=== PATIENT | male | born 1965 | race Caucasian/White ===

== ENCOUNTER 2017-02-16 12:01 | Observation (INO) ==
[2017-02-16] MEDS ORDERED: Aminoglycoside Consult 1 EACH MC ONE (12:17)
--- NOTE | 2017-02-16 12:17 | Emergency Department Note ---
Disposition Clinical Impression: Cellulitis Disposition: Admitted As Inpatient Condition: Fair Time of Disposition: 13:20 Skin/Abscess/FB HPI Chief complaint: ED General Medical Stated complaint: cellulitis to feet Time Seen by Provider: 02/16/17 12:08 Source: patient Mode of arrival: ambulatory Limitations: no limitations Nursing Notes Reviewed: Yes Vital Signs Reviewed: Yes HPI Narrative: Patient sent to the ER at the recommendation of the [facility] due to lower extremity swelling, erythema. Concern for cellulitis and possible fungal infection. Patient currently taking cephalexin as well as topical antifungals. He denies objective fevers. States his legs have been swollen over the past several months. Pt Subjective Complaint: rash Onset (ago): month(s) Location: LLE, RLE Severity: mild Quality: aching Consistency: constant Improves with: none Worsens with: none Treatments prior to arrival: antibiotic, other Home Medications Medication Instructions Recorded Confirmed Atorvastatin Calcium [Lipitor] 20 mg PO HS 06/15/16 02/16/17 Metformin HCl [Glucophage] 1,000 mg PO BID 06/15/16 02/16/17 Metoprolol XL (24 HR) Succ [Toprol 25 mg PO HS 06/15/16 02/16/17 XL] Omeprazole [PriLOSEC] 40 mg PO DAILY 06/15/16 02/16/17 Ranitidine HCl [Zantac] 300 mg PO HS PRN 06/15/16 02/16/17 Sitagliptin Phosphate [Januvia] 100 mg PO DAILY 06/15/16 02/16/17 hydroCHLOROthiazide 25 mg PO DAILY 06/15/16 02/16/17 [Hydrochlorothiazide] Clotrimazole 1% CRM [Lotrimin 1%] 1 appl TP BID 02/16/17 02/16/17 Furosemide [Lasix] 20 mg PO DAILY PRN 02/16/17 02/16/17 Levothyroxine [Synthroid] 125 mcg PO DAILY 02/16/17 02/16/17 Potassium Chloride [Klor-Con 10] 10 meq PO DAILY 02/16/17 02/16/17 levoFLOXacin [Levaquin] 500 mg PO DAILY 02/16/17 02/16/17 Allergies Allergy/AdvReac Type Severity Reaction Status Date / Time No Known Allergies Allergy Verified 06/15/16 08:04 All systems ED: reviewed and negative except as stated. Constitutional: Reports: as per HPI Eyes: Reports: as per HPI ENT ED: Reports: as per HPI Cardiovascular: Reports: as per HPI Respiratory: Reports: as per HPI Gastrointestinal: Reports: as per HPI Genitourinary: Reports: as per HPI Musculoskeletal: Reports: other (Lower extremity swelling) Integumentary: Reports: rash Psychiatric: Reports: as per HPI Endocrine: Reports: as per HPI Hematological/Lymphatic: Reports: as per HPI Allergic/Immunologic: Reports: as per HPI Past Medical History - Past Medical History Source: patient Medical history: Reports: diabetes, hyperlipidemia, hypertension Surgical history: Reports: no surgical history Psychiatric history: Reports: no psych history - Social History Smoking Status: Never smoker Smokeless Tobacco Status: No Alcohol use: Reports: rarely Drug use: Reports: none Physical Exam - General Limitations: no limitations General appearance: alert, in no apparent distress - Head Head exam: atraumatic - Eye Eye exam: Present: normal appearance - ENT ENT exam: normal exam - Neck Neck exam: Present: normal inspection - Chest Chest inspection: Present: normal inspection, symmetric chest wall rise - Respiratory Respiratory exam: Present: normal lung sounds bilaterally - Cardiovascular Cardiovascular exam: Present: regular rate, normal rhythm, normal heart sounds - Rectal Exam Rectal exam: Present: deferred - Extremities Exam Extremities exam: Present: pedal edema, other (Bilateral lower extremity swelling, left greater than right.) - Neurological Exam Neurological exam: Present: alert, oriented X3, CN II-XII intact - Psychiatric Psychiatric exam: Present: normal affect, normal mood - Skin Skin exam: Present: warm, dry, rash, other (Increased erythema to his distal bilateral lower extremities, left greater than right. Clear fluid filled bullae present. Skin tense without crepitus) Course Course Narrative: Patient presents with lower extremity swelling and erythema. Concern for cellulitis versus skin reaction due to edema. I will evaluate the patient for a left lower extremity DVT. Labs to be checked. Analgesics offered but declined - Reevaluation(s) Reevaluation #1: Test results discussed with patient. Doppler ultrasound negative for DVT. We will request admission Vital Signs Temperature 98.1 F 02/16/17 12:04 Pulse Rate 94 02/16/17 12:04 Respiratory Rate 18 02/16/17 12:04 Blood Pressure 152/103 02/16/17 12:04 O2 Sat by Pulse Oximetry 96 02/16/17 12:04 Temperature 98.4 F 02/16/17 15:14 Pulse Rate 85 02/16/17 15:14 Respiratory Rate 12 02/16/17 15:14 Blood Pressure 140/107 02/16/17 15:14 O2 Sat by Pulse Oximetry 98 02/16/17 15:32 Oxygen Delivery Oxygen Delivery Room Air Skin/Abscess/Foreign Body - Lab Data Lab results reviewed: Yes I reviewed the patient's lab results. Result diagrams: 02/16/17 12:25 02/16/17 12:25 Lab Results 02/16/17 02/16/17 02/16/17 Range/Units 12:25 12:25 12:25 WBC 9.8 (4.3-11.1) K/mcL RBC 5.63 H (4.19-5.50) M/mcL Hgb 14.8 (12.9-16.9) g/dL Hct 46.2 (37.5-50.1) % MCV 82.1 L (83.0-100.0) fL MCH 26.3 L (28.0-33.3) pg MCHC 32.0 (31.6-35.5) g/dL RDW 13.9 (11.5-14.5) % Plt Count 295 (140-400) K/mcL MPV 9.4 (9.4-12.4) fL Immature Gran % 0.4 (0-4) % Seg Neutrophils % 59.8 % Lymphocytes % 20.0 % Monocytes % 9.3 % Eosinophils % 10.0 % Basophils % 0.5 % Neutrophils # 5.8 (1.6-8.9) K/mcL Lymphocytes # 2.0 (0.6-4.6) K/mcL Monocytes # 0.9 (0.0-1.3) K/mcL Eosinophils # 1.0 H (0.0-0.6) K/mcL Basophils # 0.1 (0.0-0.2) K/mcL ESR 94 H (0-10) mm/hr Sodium 137 (136-145) mEq/L Potassium 3.8 (3.5-4.5) mEq/L Chloride 104 (98-109) mEq/L Carbon Dioxide 25 (19-29) mEq/L BUN 17 (8-26) mg/dL Creatinine 0.93 (0.72-1.25) mg/dL Est GFR ( Amer) > 60 (> 60) Est GFR (Non-Af Amer) > 60 (> 60) BUN/Creatinine Ratio 18 (6-26) Glucose 136 H (70-99) mg/dL Est Mean Plasma Glucose mg/dl Hemoglobin A1c ( - 5.6) % Calculated Osmolality 288 (280-300) Calcium 9.8 (8.6-10.8) mg/dL Total Bilirubin 0.7 (0.2-1.2) mg/dL AST 49 H (5-34) Units/L ALT 74 H (0-55) Units/L Alkaline Phosphatase 99 (38-126) Units/L C-Reactive Protein 24 H (Less than 5) mg/L Serum Total Protein 6.8 (6.0-8.3) g/dL Albumin 3.0 L (3.5-5.0) g/dL Globulin 3.8 H (2.4-3.5) g/dL Albumin/Globulin Ratio 0.8 L (1.1-2.2) 02/16/ Range/Units 12:25 WBC (4.3-11.1) K/mcL RBC (4.19-5.50) M/mcL Hgb (12.9-16.9) g/dL Hct (37.5-50.1) % MCV (83.0-100.0) fL MCH (28.0-33.3) pg MCHC (31.6-35.5) g/dL RDW (11.5-14.5) % Plt Count (140-400) K/mcL MPV (9.4-12.4) fL Immature Gran % (0-4) % Seg Neutrophils % % Lymphocytes % % Monocytes % % Eosinophils % % Basophils % % Neutrophils # (1.6-8.9) K/mcL Lymphocytes # (0.6-4.6) K/mcL Monocytes # (0.0-1.3) K/mcL Eosinophils # (0.0-0.6) K/mcL Basophils # (0.0-0.2) K/mcL ESR (0-10) mm/hr Sodium (136-145) mEq/L Potassium (3.5-4.5) mEq/L Chloride (98-109) mEq/L Carbon Dioxide (19-29) mEq/L BUN (8-26) mg/dL Creatinine (0.72-1.25) mg/dL Est GFR ( Amer) (> 60) Est GFR (Non-Af Amer) (> 60) BUN/Creatinine Ratio (6-26) Glucose (70-99) mg/dL Est Mean Plasma Glucose 174 mg/dl Hemoglobin A1c 7.7 H ( - 5.6) % Calculated Osmolality (280-300) Calcium (8.6-10.8) mg/dL Total Bilirubin (0.2-1.2) mg/dL AST (5-34) Units/L ALT (0-55) Units/L Alkaline Phosphatase (38-126) Units/L C-Reactive Protein (Less than 5) mg/L Serum Total Protein (6.0-8.3) g/dL Albumin (3.5-5.0) g/dL Globulin (2.4-3.5) g/dL Albumin/Globulin Ratio (1.1-2.2) - Radiology Data Radiology results reviewed: Yes I reviewed the patient's radiology results. doppler US negative for DVT LLE
[2017-02-16 12:39] LABS: Basophils # 0.1 K/mcL (0.0-0.2); Basophils % 0.5 %; Hematocrit 46.2 % (37.5-50.1); Hemoglobin 14.8 g/dL (12.9-16.9); Immature Granulocytes % 0.4 % (0-4); Mean Corpuscular Hemoglobin 26.3 pg (28.0-33.3); Mean Corpuscular Volume 82.1 fL (83.0-100.0); Mean Platelet Volume 9.4 fL (9.4-12.4); Monocytes # 0.9 K/mcL (0.0-1.3); Monocytes % 9.3 %; Neutrophils # 5.8 K/mcL (1.6-8.9); Platelet Count 295 K/mcL (140-400); Red Blood Count 5.63 M/mcL (4.19-5.50); Red Cell Distribution Width 13.9 % (11.5-14.5); Segmented Neutrophils % 59.8 %
[2017-02-16 12:51] LABS: Alanine Aminotransferase 74 Units/L (0-55); Albumin/Globulin Ratio 0.8 (1.1-2.2); Alkaline Phosphatase 99 Units/L (38-126); Aspartate Amino Transferase 49 Units/L (5-34); BUN/Creatinine Ratio 18 (6-26); Bilirubin,Total 0.7 mg/dL (0.2-1.2); Blood Urea Nitrogen 17 mg/dL (8-26); C-Reactive Protein 24 mg/L (Less than 5); Calcium 9.8 mg/dL (8.6-10.8); Carbon Dioxide 25 mEq/L (19-29); Chloride 104 mEq/L (98-109); Globulin 3.8 g/dL (2.4-3.5); Glucose 136 mg/dL (70-99); Osmolality,Calculated 288 (280-300); Potassium 3.8 mEq/L (3.5-4.5); Sodium 137 mEq/L (136-145); Total Protein 6.8 g/dL (6.0-8.3); eGFR For African Americans > 60 (> 60); eGFR For Non-African Americans > 60 (> 60)
[2017-02-16] MEDS ORDERED: Ampicillin/Sulbactam 3,000 MG in 0.9 % Sodium Chloride Mini Bag 100 ML IVPB ONE (13:11)
[2017-02-16] MEDS ORDERED: Vancomycin 1,000 MG in D5% in Water 250 ML IVPB ONE ×2 (13:11→15:31)
[2017-02-16] MEDS ORDERED: Vancomycin 2,000 MG in D5% in Water 500 ML IVPB SCH (14:00)
[2017-02-16] MEDS ORDERED: Famotidine 20 MG TABLET PO PRN (15:21)
[2017-02-16] MEDS ORDERED: *HR* Dextrose 50 % in Water (Syg) 50 ML SYRINGE IVP PRN (15:28)
[2017-02-16] MEDS ORDERED: D5% in Water 1,000 ML IVC PRN (15:28)
[2017-02-16] MEDS ORDERED: Dextrose Gel 15 GM PO PRN ×2 (15:28)
[2017-02-16] MEDS ORDERED: Naloxone 0.4 MG/ML INJ IVP PRN (15:29)
--- NOTE | 2017-02-16 15:43 | Internal Med History&Physical ---
<Cortez Rosen J - Last Filed: 02/16/17 15:36> Date of Encounter: 02/16/17 Time of Encounter: 15:36 Assessment and Plan (1) Cellulitis Current visit: Yes Status: Suspected Swelling and erythema of left lower extremity for greater than two months suspicious for cellulitis however, venous stasis dermatitis cannot be fully ruled out. Patient reports having lower extremity swelling, erythema and pain since September 2016. Has failed outpatient antibiotic treatment on at least 2 instances. Most recently placed on Levaquin and an antifungal as there is some concern there is a fungal component as well. However he reports no improvement. Throughout the last couple of weeks he notes new blisters, drainage and increased swelling. Wound culture of left lower extremity Start vancomycin with pharmacy to dose Start cefepime; narrow antibiotic therapy is appropriate Place patient on IV Lasix 40 mg twice a day we will reduce swelling Qualifiers: Site of cellulitis: extremity Site of cellulitis of extremity: lower extremity Laterality: left Qualified Code(s): L03.116 - Cellulitis of left lower limb (2) Poison luis dermatitis Current visit: Yes Status: Acute Patient appears allergic contact dermatitis throughout bilateral upper and lower extremity syndrome. States "I was mowing the other day and rash appeared shortly after". It is minimally pruritic. Start Solumedrol 40mg IVP q12hrs (3) Diabetes Current visit: Yes Status: Acute History of type 2 diabetes with a long-term insulin use. She states it is normally well controlled. Discontinue oral hypoglycemic agents. Start low- dose sliding scale insulin coverage and 50 at bedtime Accu-Cheks. Qualifiers: Diabetes mellitus type: type 2 Diabetes mellitus complication status: without complication Diabetes mellitus superintendent container terminal insulin use: without shelter use Qualified Code(s): E11.9 - Type 2 diabetes mellitus without complications (4) DVT prophylaxis Current visit: Yes Status: Acute risk for dvt d/t prolonged immobility caused by hospital stay and LLE swelling. Start lovenox 40mg SC daily. Internal Medicine - H&P: HPI Chief complaint: CELLULITIS Admitted From: Home Plans for Post Hospital Care: Home History of present illness: Mr. Mcallister is a 51 year old male with a past medical history of type 2 diabetes , HIV, hypertension. Presents to air and sees today at the request of [facility] and [facility] due to bilateral lower extremity swelling, erythema and concern for cellulitis. The patient has been treated for cellulitis and possible fungal infection was previously placed on Levaquin and topical antifungals. Antibiotic and antifungal therapy has failed and legs are continuing to swell and remain erythematous. He denies any fevers. Admits to left lower extremity discomfort, new night sweats for the last week, and increased swelling in the left lower extremity. Received Vanc and ampicillin in ED. He is being admitted to [facility] for further workup evaluation and antibiotic therapy. Past Med Surg Social Fam HX - Past Medical History Medical history: diabetes, hyperlipidemia, hypertension Psychiatric history: no psych history - Past Surgical History Surgical History: no surgical history - Social History Smoking Status: Never smoker Smokeless Tobacco Status: No Alcohol use: rarely Drug use: none Internal Medicine - H&P: Meds Atorvastatin Calcium [Lipitor] 20 mg PO HS 06/15/16 [History] Metformin HCl [Glucophage] 1,000 mg PO BID 06/15/16 [History] Metoprolol XL (24 HR) Succ [Toprol XL] 25 mg PO HS 06/15/16 [History] Omeprazole [PriLOSEC] 40 mg PO DAILY 06/15/16 [History] Ranitidine HCl [Zantac] 300 mg PO HS PRN 06/15/16 [History] Sitagliptin Phosphate [Januvia] 100 mg PO DAILY 06/15/16 [History] hydroCHLOROthiazide [Hydrochlorothiazide] 25 mg PO DAILY 06/15/16 [History] Clotrimazole 1% CRM [Lotrimin 1%] 1 appl TP BID 02/16/17 [History] Furosemide [Lasix] 20 mg PO DAILY PRN 02/16/17 [History] Levothyroxine [Synthroid] 125 mcg PO DAILY 02/16/17 [History] Potassium Chloride [Klor-Con 10] 10 meq PO DAILY 02/16/17 [History] levoFLOXacin [Levaquin] 500 mg PO DAILY 02/16/17 [History] 3 Allergy/AdvReac Type Severity Reaction Status Date / Time No Known Allergies Allergy Verified 06/15/16 08:04 All Systems PM: A 10-system review of systems was performed and is negative for pertinent findings except as documented above in the HPI. - Constitutional Constitutional: no chills, no fever(s), no night sweats - Cardiovascular Cardiovascular ROS IM: edema, no chest pain, no diaphoresis, no dyspnea, no lightheadedness, no palpitations, no syncope - Respiratory Respiratory: no cough, no dyspnea, no wheezing, no excessive phlegm production - Gastrointestinal Gastrointestinal: no abdominal pain - Genitourinary Genitourinary ROS male: no difficulty urinating, no dysuria, no genital pain - Musculoskeletal Musculoskeletal ROS IM: no arthralgias, no joint swelling, no muscle weakness, no numbness, no tingling - Integumentary Integumentary IM: as per HPI, erythema (LLE), skin ulcer (LLE), sores (lle), no rash, no unusual bruising - Neurological Neurological ROS: no confusion, no convulsions, no focal weakness, no numbness, no tingling, no tremor(s) - Hematologic/Lymphatic Hematologic/Lymphatic: no easy bruising - Constitutional Vitals: Temp Pulse Resp BP Pulse Ox 98.4 F 85 12 140/107 98 02/16/17 15:14 02/16/17 15:14 02/16/17 15:14 02/16/17 15:14 02/16/17 15:32 General appearance: Present: cooperative, A&O X 3, no acute distress, answers questions appropriately - Respiratory Respiratory exam: Present: CTAB. Absent: accessory muscle use, rales, rhonchi, wheezes - Cardiovascular Cardiovascular exam: Present: RRR, +S1, +S2. Absent: diastolic murmur, gallop, rubs, systolic murmur - GI/Abdominal GI/Abdominal exam: Present: normal bowel sounds, soft, no peritoneal signs. Absent: distended, tenderness - Expanded Lower Extremities Exam Lower Leg exam: Present: erythema, swelling, tenderness (mild tenderness) - Psychiatric Psychiatric exam: Present: normal affect, normal mood - Skin Skin exam: Present: erythema, rash (contact dermatitis appear rash) Internal Med - H&P Results - Labs CBC & Chem 7: 02/16/17 12:25 02/16/17 12:25 <Facundo Hudson - Last Filed: 02/16/17 17:48> Date of Encounter: 02/16/17 Internal Medicine - H&P: HPI History of present illness: Mr. Mcallister is a 51 year old male All Systems PM: A 10-system review of systems was performed and is negative for pertinent findings except as documented above in the HPI. - Constitutional Vitals: Temp Pulse Resp BP Pulse Ox 98.4 F 85 12 140/107 98 02/16/17 15:14 02/16/17 15:14 02/16/17 15:14 02/16/17 15:14 02/16/17 15:32 Internal Med - H&P Results - Labs CBC & Chem 7: 02/16/17 12:25 02/16/17 12:25 - Attending Attestation I have personally performed a face to face evaluation on this patient and I discussed the assessment and plan with the nurse practitioner. I have reviewed and agree with the documented care plan. History and Exam by me shows: Mr. Mcallister is a 51 year old male with a past medical history of type 2 diabetes , HIV, hypertension. Presents to air and sees today at the request of [facility] and joint due to bilateral lower extremity swelling, erythema and concern for cellulitis. The patient has been treated for cellulitis and possible fungal infection was previously placed on Levaquin and topical antifungals. Antibiotic and antifungal therapy has failed and legs are continuing to swell and remain erythematous. He denies any fevers. Admits to left lower extremity discomfort, new night sweats for the last week, and increased swelling in the left lower extremity. He also had diffuse rash all over the body, developed right after he finished lawn on Moving on Tuesday. Gen: A, A, O x 3 Chest: Diminished BS, No wheezig No crackles Heart; S1 S2 + RRR Ext: b/l LE Edema.. diffuse erythema over both legs.. open ulcer with small bullae noticed over Left mars region He also has diffuse palpable purpuric rash all over the body a/p 1. Acute b/l LE cellulitis cont broad sepc abx Cefepime and Vanco sent for wound cx 2. Venous stasis ulcer Local wound care consulted wound care 3. Diffuse rash all over the body.. contact dermatitis / allergic dermatitis started on systemic steroids
[2017-02-16 16:32] LABS: Hemoglobin A1C 7.7 %
[2017-02-16] MEDS: Insulin LISPRO 300 UNITS/3 ML VIAL SQ SCH ×2 (16:45→21:26)
[2017-02-16] MEDS: Cefepime HCl 2,000 MG in D5% in Water (Mini-Bag+) 100 ML IVPB SCH (17:42)
[2017-02-16] MEDS: MethylPREDNISolone 40 MG/ML VIAL IVP SCH (17:42)
[2017-02-16] MEDS: Metoprolol XL (24 HR) Succ 25 MG TAB.ER.24H PO SCH (21:40)
[2017-02-16] MEDS: Furosemide 40 MG/4 ML VIAL IVP SCH (21:40)
[2017-02-16] MEDS: Clotrimazole 1% CRM 15 GM TUBE TP SCH (21:44)
[2017-02-17 01:47] LABS: Basophils % 0.3 %; Eosinophils # 0.1 K/mcL (0.0-0.6); Eosinophils % 1.5 %; Hemoglobin 14.9 g/dL (12.9-16.9); Immature Granulocytes % 0.3 % (0-4); Immature Platelets 2.7 % (1.1-6.1); Lymphocytes # 1.3 K/mcL (0.6-4.6); Lymphocytes % 13.5 %; Mean Corpuscular HGB Conc 32.4 g/dL (31.6-35.5); Mean Corpuscular Hemoglobin 26.9 pg (28.0-33.3); Mean Corpuscular Volume 83.2 fL (83.0-100.0); Mean Platelet Volume 9.5 fL (9.4-12.4); Monocytes # 0.2 K/mcL (0.0-1.3); Monocytes % 2.1 %; Neutrophils # 7.9 K/mcL (1.6-8.9); Platelet Count 319 K/mcL (140-400); Red Blood Count 5.53 M/mcL (4.19-5.50); Red Cell Distribution Width 13.8 % (11.5-14.5); Segmented Neutrophils % 82.3 %
[2017-02-17 02:13] LABS: Alanine Aminotransferase 78 Units/L (0-55); Albumin/Globulin Ratio 0.8 (1.1-2.2); Alkaline Phosphatase 102 Units/L (38-126); Aspartate Amino Transferase 54 Units/L (5-34); BUN/Creatinine Ratio 15 (6-26); Bilirubin,Total 0.5 mg/dL (0.2-1.2); Blood Urea Nitrogen 15 mg/dL (8-26); Calcium 9.7 mg/dL (8.6-10.8); Carbon Dioxide 21 mEq/L (19-29); Chloride 103 mEq/L (98-109); Globulin 3.9 g/dL (2.4-3.5); Glucose 239 mg/dL (70-99); Osmolality,Calculated 289 (280-300); Sodium 135 mEq/L (136-145); Total Protein 6.9 g/dL (6.0-8.3); eGFR For African Americans > 60 (> 60); eGFR For Non-African Americans > 60 (> 60)
[2017-02-17] MEDS: Vancomycin 2,000 MG in D5% in Water 500 ML IVPB SCH ×2 (02:19→14:31)
[2017-02-17] MEDS: *HR* Enoxaparin 40 MG/0.4 ML SYRINGE SQ SCH (05:37)
[2017-02-17] MEDS: Cefepime HCl 2,000 MG in D5% in Water (Mini-Bag+) 100 ML IVPB SCH ×2 (05:38→16:59)
[2017-02-17] MEDS: MethylPREDNISolone 40 MG/ML VIAL IVP SCH ×2 (05:38→16:59)
[2017-02-17] MEDS: Furosemide 40 MG/4 ML VIAL IVP SCH ×2 (08:52→21:17)
[2017-02-17] MEDS: Clotrimazole 1% CRM 15 GM TUBE TP SCH ×2 (08:55→22:12)
[2017-02-17] MEDS: Insulin LISPRO 300 UNITS/3 ML VIAL SQ SCH ×4 (09:00→21:07)
[2017-02-17] MEDS ORDERED: hydroCHLOROthiazide 25 MG TABLET PO SCH (09:00)
--- NOTE | 2017-02-17 12:34 | Internal Med Progress Note ---
Date of Encounter: 02/17/17 Time of Encounter: 12:27 - Assessment and plan (1) Cellulitis Status: Acute Assessment and plan: Cellulitis and suspected vasculitis of left leg. Follow-up blood and wound cultures and continue broad-spectrum IV antibiotics-vancomycin and Zosyn for now. Lower extremity elevation. Supportive care with pain control. ESR and CRP noted to be mildly elevated. Will consult rheumatology for further workup. Acute hepatitis viral panel negative. Continue IV Lasix and potassium supplements for leg edema. Bilateral venous Doppler of lower extremities is negative for DVT. Qualifiers: Site of cellulitis: extremity Site of cellulitis of extremity: lower extremity Laterality: left Qualified Code(s): L03.116 - Cellulitis of left lower limb (2) Poison luis dermatitis Status: Acute Assessment and plan: Continue IV steroids and when necessary Benadryl. (3) Essential hypertension Status: Chronic Assessment and plan: Blood pressure noted to be well controlled. Continue home medications. (4) Diabetes Status: Chronic Assessment and plan: Patient is at risk of steroid-induced hyperglycemia. Continue Accu-Chek blood glucose monitoring closely along with sliding scale insulin. Diabetic diet. Qualifiers: Diabetes mellitus type: type 2 Diabetes mellitus complication status: with hyperglycemia Diabetes mellitus alf insulin use: without terminal operations supervisor use Qualified Code(s): E11.65 - Type 2 diabetes mellitus with hyperglycemia - Subjective Interval history: Mild pain in left leg but tolerable; no fever/chills, nausea, vomiting, abdominal pain, hematuria; noted to have significant swelling in both legs, left >right with associated redness and shallow oozing ulceration over legs; also has diffuse fine rash all over his body, appears allergic; - Constitutional Vitals: Temp Pulse Resp BP Pulse Ox 97.8 F 81 16 117/64 95 02/17/17 09:41 02/17/17 09:41 02/17/17 09:41 02/17/17 09:41 02/17/17 09:41 General appearance: Present: cooperative, A&O X 3, morbidly obese, no acute distress, answers questions appropriately - Respiratory Respiratory exam: Present: CTAB. Absent: accessory muscle use, rales, rhonchi, wheezes - Cardiovascular Cardiovascular exam: Present: RRR, +S1, +S2. Absent: diastolic murmur, gallop, rubs, systolic murmur - GI/Abdominal GI/Abdominal exam: Present: normal bowel sounds, soft (obese), no peritoneal signs. Absent: distended, tenderness - Extremities Exam Extremities exam: Present: full ROM, pedal edema, warm, radial pulses palpable and symmetrical. Absent: calf tenderness, cyanotic Additional comments: B/L leg edema 4+, left>right; erythema, warmth, shallow oozing ulcers over left anterior and posterior leg with yellow exudate; diffuse papular rash extending from right foot, up the extremity and trunk, B/L upper extremities, non-pruritic - Neurological Exam Neurological exam: Present: CN II-XII intact, oriented X3, no focal deficits. Absent: pronater drift, facial droop, speech deficit - Skin Skin exam: Present: dry, erythema, intact, rash Internal Medicine: Result - Labs CBC & Chem 7: 02/17/17 01:09 02/17/17 01:09 Labs: Short CBC 02/17/17 Range/Units 01:09 WBC 9.6 (4.3-11.1) K/mcL Hgb 14.9 (12.9-16.9) g/dL Hct 46.0 (37.5-50.1) % Plt Count 319 (140-400) K/mcL Neutrophils # 7.9 (1.6-8.9) K/mcL BMP 02/17/17 01:09 Sodium 135 L Potassium 4.0 Chloride 103 Carbon Dioxide 21 BUN 15 Creatinine 1.00 Glucose 239 H Calcium 9.7 Liver Function 02/17/17 Range/Units 01:09 Total Bilirubin 0.5 (0.2-1.2) mg/dL AST 54 H (5-34) Units/L ALT 78 H (0-55) Units/L Alkaline Phosphatase 102 (38-126) Units/L Albumin 3.0 L (3.5-5.0) g/dL Consult Discharge Plan - Plan Additional Instructions: F/up with PCP in 1-2 weeks F/up with Dr.Van Simpson in 1-2 weeks F/up with Dermatology in 1-2 weeks Please return to ER if you notice any excessive redness, fever, chills, odor, drainage or swelling. Referrals: Landon Turpin MD [Primary Care Provider] - Prescriptions: Cephalexin [Keflex] 500 mg PO Q8H #21 capsule Clindamycin HCl 450 mg PO Q6H 7 Days capsule Lactobacillus Acidophilus [Acidophilus] 1 each PO BID #30 capsule predniSONE [PredniSONE] 40 mg PO DAILY #14 tablet
--- NOTE | 2017-02-17 13:42 | Rheumatology Consult Note ---
<Fan James - Last Filed: 02/17/17 14:54> Date of Encounter: 02/17/17 Time of Encounter: 13:39 Rheumatology Assess and Plan (1) Erythema of lower limb Current Visit: Yes Status: Acute patient presents with erythema of lower extremity which is more prominent on the left. has open oozing boils, 4+ non pitting edema on left and 2+ pitting edema on right elevated CRP and ESR reports baseline LE edema treated with compression stocking at home reports hx of contact dermatitis (2004) in LLE due to wool socks there are no other joint, extremity involvement denies family hx of auto immune diseases wbc WNL, afebrile, Negative RLE Doppler dx: contact dermatitis, venous stasis dermatitis, cellulitis plan: will order SUSHIL, ANCA, Hep panel, CXR to rule out vasculitis, inflammatory arthritis. continue antibiotics, Recommend follow up with dermatology outpatient further recommendation upon lab results. (2) Elevated C-reactive protein (CRP) Current Visit: Yes Status: Acute acute phase reactant may be 2nd to cellulitis, venous stasis dermatitis will obtain above labs for further evaluation (3) ESR raised Current Visit: Yes Status: Acute elevated in setting of inflammation of left lower extremity will evaluate for rheumatologic disorders with above labs. (4) Poison luis dermatitis Current Visit: Yes Status: Acute reports exposure to poision luis in back yard while mowing grass patient has diffuse petichial rash continue solumedrol (5) Diabetes Current Visit: Yes Status: Acute as per primary team. 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 Mcallister is a 51 year old male presents with chief complaint of lower extremity swelling, erythema. Patient states that starting in September of this year he had lower extremity swelling which was treated with compression stockings however the swelling became worse and he developed left lower extremity erythema. There was concern for cellulitis and patient was started on Levaquin and topical antifungals. Patient states initially the antibiotics helped improve the erythema and swelling however it did not completely resolve it and since last Tuesday patient's lower extremity swelling and erythema worsened. Left lower extremity is worse than right and reports burning 3/10 pain. Erythema does not worsen with sun light. States he has poision IV in back yard and mowed grass last week and developed this petichial rash throughout his body that is mildly itchy. Denies hx of psoriasis, family hx of autoimmune diseases ( adopted knows limited family hx). He reports baseline lower extremity swelling which is worse in summer and improves in winter. Past Med Surg Social Fam HX - Past Medical History Medical history: diabetes, hyperlipidemia, hypertension Psychiatric history: no psych history - Past Surgical History Surgical History: no surgical history - Social History Smoking Status: Never smoker Smokeless Tobacco Status: No Alcohol use: rarely Drug use: none Medications and Allergies Atorvastatin Calcium [Lipitor] 20 mg PO HS 06/15/16 [History] Metformin HCl [Glucophage] 1,000 mg PO BID 06/15/16 [History] Metoprolol XL (24 HR) Succ [Toprol XL] 25 mg PO HS 06/15/16 [History] Omeprazole [PriLOSEC] 40 mg PO DAILY 06/15/16 [History] Ranitidine HCl [Zantac] 300 mg PO HS PRN 06/15/16 [History] Sitagliptin Phosphate [Januvia] 100 mg PO DAILY 06/15/16 [History] hydroCHLOROthiazide [Hydrochlorothiazide] 25 mg PO DAILY 06/15/16 [History] Clotrimazole 1% CRM [Lotrimin 1%] 1 appl TP BID 02/16/17 [History] Furosemide [Lasix] 20 mg PO DAILY PRN 02/16/17 [History] Levothyroxine [Synthroid] 125 mcg PO DAILY 02/16/17 [History] Potassium Chloride [Klor-Con 10] 10 meq PO DAILY 02/16/17 [History] levoFLOXacin [Levaquin] 500 mg PO DAILY 02/16/17 [History] 3 Allergy/AdvReac Type Severity Reaction Status Date / Time No Known Allergies Allergy Verified 06/15/16 08:04 All Systems Review: A 10-system review of systems was performed and is negative for pertinent findings except as documented above in the HPI. Review of Systems: Constitutional: Denies fever, chills HEENT: Denies headache, vision changes, neck pain, sore throat, rhinorrhea, oral ulcers/sores Heart: Denies chest pain palpitations Lungs: Denies shortness of breath cough Abdomen: Denies abdominal pain nausea vomiting diarrhea Back: Denies back pain Kidney: Denies dysuria, hematuria Skin: Reports lower extremity discoloration. Denies previous hx of psoriasis, Extremities:reports left lower extremity swelling and pain but denies swelling or pain in other extremeties or joints. Denies joint discoloration. Neuro: Denies numbness, and tingling Rheumatology Exam Vital Signs, Last 4 Hours Temp Pulse Resp BP Pulse Ox 02/17/17 09:41 97.8 F 81 16 117/64 95 Exam: General: pleasant male w/o distress HEENT: Head atraumatic, normocephalic, EOMI, PERRL, neck nontender to palpation , absent lymphadenopathy, Moist Mucous Membranes, Heart: Regular rate and rhythm with no murmur Lungs: Clear to auscultation bilaterally Abdomen: Soft nontender, nondistended positive bowel sounds Skin: left below the knee erythema with signs of open boils oozing. right distal lower extremity has petichial rash, patchy erythematous rash right above ankle with open central boil. He also has petichial rash in upper extremity b/l , belly, back. Extremities: 4+ left lower extremity non pitting edema and 2+ pitting edema on the right. Neuro: sensation equal bilaterally, UE and LEstrength 5/5, alert oriented 3, Vascular: radial pulses 2 out of 4. right posterior tibial pulse 2/4 and left postier tibial difficult to identify. Rheumatology Results 02/17/17 01:09 02/17/17 01:09 All other labs normal. Consult Discharge Plan - Plan Referrals: Landon Turpin MD [Primary Care Provider] - <Doug Cohn W - Last Filed: 02/17/17 17:29> Date of Encounter: 02/17/17 Rheumatology HPI History of present illness: Mr. Mcallister is a 51 year old male All Systems Review: A 10-system review of systems was performed and is negative for pertinent findings except as documented above in the HPI. Rheumatology Exam Vital Signs, Last 4 Hours Temp Pulse Resp BP Pulse Ox 02/17/17 14:56 98.1 F 87 16 129/87 96 Rheumatology Results 02/17/17 01:09 02/17/17 01:09 All other labs normal. - Attending Attestation I examined this patient and my medical decision making was reviewed with the resident physician. I agree with the documented findings, disposition and treatment as described with these exceptions. - This is a 51-year-old male with PMH of DM2, HTN, HLD and obesity who presents with recurrent lower extremity rash. ROS - 10 point ROS negative except for what is mentioned above. - No fevers - Doppler negative - ESR/CRP elevated - On antibiotics - Exam - ENT - Mucous membranes moist without lesions, Lymph - No cervical lymphadenopathy. Heart - S1S2 RRR without murmurs or extra heart sounds, Lungs - CTAB without wheezes or crackles. Abd - Obese, distended but nontender. Neuro - Strength exam limited in left lower leg due to swelling but able to plantar and dorsiflex ok; sensation intact of lower extremities. Skin - Diffuse small raised erythematous lesions, left lower extremity with induration , erythema, weeping and openings noted. Right lower leg with some erythema noted. Rash - At this time, this patient has a worsening lower extremity rash. He does not have many systemic findings concerning of systemic vasculitis. Will check hepatitis panel, ANCA, autoimmune serologies, UA and CXR. - Recommend blood cultures though he is on antibiotics - Other considerations could be a severe stasis dermatitis. Could consider outpatient derm evaluation. - I will follow-up on labs and studies and follow-up with him with results or outpatient visit. - I will not be back in the hospital till Tuesday.
[2017-02-17 16:48] LABS: Bilirubin,Urine Negative (Negative); Blood,Urine Negative (Negative); Clarity,Urine Clear (Clear); Color,Urine Yellow (Yellow); Glucose,Urine (UA) 500 mg/dL (Normal); Ketones,Urine Negative (Negative); Leukocyte Esterase,Urine Negative (Negative); Nitrite,Urine Negative (Negative); PH,Urine 5.5 pH Units (5.0-8.0); Protein,Urine 100 mg/dL (Neg-Trace); Urobilinogen,Urine Normal (Normal)
[2017-02-17 16:49] LABS: Bacteria,Urine None Seen per hpf (None-Few); Hyaline Casts,Urine None Seen per lpf (None-Few); RBC,Urine 0-3 per hpf (0-3); Squamous Epithelial Cell,Urine None Seen per lpf (None-Few); WBC,Urine 0-3 per hpf (0-3)
[2017-02-17] MEDS: Metoprolol XL (24 HR) Succ 25 MG TAB.ER.24H PO SCH (21:18)
[2017-02-18] MEDS: Vancomycin 2,000 MG in D5% in Water 500 ML IVPB SCH (02:54)
[2017-02-18] MEDS: MethylPREDNISolone 40 MG/ML VIAL IVP SCH (05:54)
[2017-02-18] MEDS: *HR* Enoxaparin 40 MG/0.4 ML SYRINGE SQ SCH (05:54)
[2017-02-18] MEDS: Cefepime HCl 2,000 MG in D5% in Water (Mini-Bag+) 100 ML IVPB SCH ×2 (05:54→19:16)
[2017-02-18] MEDS: Furosemide 40 MG/4 ML VIAL IVP SCH ×2 (07:56→21:27)
[2017-02-18] MEDS: Insulin LISPRO 300 UNITS/3 ML VIAL SQ SCH ×2 (07:56→13:48)
[2017-02-18] MEDS: Clotrimazole 1% CRM 15 GM TUBE TP SCH ×2 (07:57→22:35)
[2017-02-18 09:42] LABS: Hepatitis A Antibody IgM Nonreactive (Nonreactive); Hepatitis B Core IgM Nonreactive (Nonreactive); Hepatitis B Surface Antigen Nonreactive (Nonreactive); Hepatitis C Virus Antibody Nonreactive (Nonreactive)
--- NOTE | 2017-02-18 10:43 | Internal Med Progress Note ---
Date of Encounter: 02/18/17 Time of Encounter: 10:42 - Assessment and plan (1) Cellulitis Status: Acute Assessment and plan: Cellulitis and suspected vasculitis of left leg. Follow-up blood and wound cultures-so far negative. We will hold vancomycin and continue IV cefepime. Lower extremity elevation. Supportive care with pain control. ESR and CRP noted to be mildly elevated. Rheumatology consult noted , recommend chest x-ray , a in a screen, ANCA, hepatitis profile. Chest x-ray shows no acute abnormality and acute hepatitis profile within normal limits. Recommend outpatient dermatology follow-up. Agree with steroids. Continue IV Lasix and potassium supplements for leg edema. Bilateral venous Doppler of lower extremities is negative for DVT. Qualifiers: Site of cellulitis: extremity Site of cellulitis of extremity: lower extremity Laterality: left Qualified Code(s): L03.116 - Cellulitis of left lower limb (2) Poison luis dermatitis Status: Acute Assessment and plan: Continue IV steroids and when necessary Benadryl. Improving. (3) Essential hypertension Status: Chronic Assessment and plan: Blood pressure noted to be well controlled. Continue home medications. (4) Diabetes Status: Chronic Assessment and plan: Patient noted to have steroid-induced hyperglycemia. Blood sugars continue to be elevated. Continue Accu-Chek blood glucose monitoring closely along with sliding scale insulin. Start basal insulin. Diabetic diet. Qualifiers: Diabetes mellitus type: type 2 Diabetes mellitus complication status: with hyperglycemia Diabetes mellitus nursing home insulin use: without awake overnight monitor use Qualified Code(s): E11.65 - Type 2 diabetes mellitus with hyperglycemia - Subjective Interval history: Reports improvement in left leg swelling and redness; rash seems to be improving overall; no fever/chills, nausea, vomiting; - Constitutional Vitals: Temp Pulse Resp BP Pulse Ox 98.3 F 76 18 138/79 96 02/18/17 06:49 02/18/17 06:49 02/18/17 06:49 02/18/17 06:49 02/18/17 06:49 General appearance: Present: cooperative, A&O X 3, morbidly obese, no acute distress, answers questions appropriately - Respiratory Respiratory exam: Present: CTAB. Absent: accessory muscle use, rales, rhonchi, wheezes - Cardiovascular Cardiovascular exam: Present: RRR, +S1, +S2. Absent: diastolic murmur, gallop, rubs, systolic murmur - Extremities Exam Extremities exam: Present: pedal edema, warm, radial pulses palpable and symmetrical. Absent: calf tenderness, cyanotic Additional comments: Mildly improving edema and erythema on left leg. Continues to have chronic skin changes with yellow exudative shallow ulcers, no active discharge. Right lower extremity contact dermatitis noted to be improving. Diffuse papular rash over trunk and upper extremities improved. Internal Medicine: Result - Labs CBC & Chem 7: 02/17/17 01:09 02/17/17 01:09 Labs: Urine 02/17/17 Range/Units 16:20 Urine Color Yellow (Yellow) Urine Clarity Clear (Clear) Urine pH 5.5 (5.0-8.0) pH Units Ur Specific [place] 1.020 (1.010-1.025) Urine Protein 100 H (Neg-Trace) mg/dL Urine Glucose (UA) 500 H (Normal) mg/dL - Impressions Impressions Chest X-Ray 02/17/17 14:28 IMPRESSION: No acute process. D/ / Leisa Moore MD / Leisa Moore MD Interpreting Provider: Leisa Moore MD Consult Discharge Plan - Plan Additional Instructions: F/up with PCP in 1-2 weeks F/up with Dr.Van Simpson in 1-2 weeks F/up with Dermatology in 1-2 weeks Please return to ER if you notice any excessive redness, fever, chills, odor, drainage or swelling. Referrals: Landon Turpin MD [Primary Care Provider] - Prescriptions: Cephalexin [Keflex] 500 mg PO Q8H #21 capsule Clindamycin HCl 450 mg PO Q6H 7 Days capsule Lactobacillus Acidophilus [Acidophilus] 1 each PO BID #30 capsule predniSONE [PredniSONE] 40 mg PO DAILY #14 tablet
[2017-02-18] MEDS: Insulin DETEMIR 100 UNIT/ML X5UNITS SQ SCH ×2 (13:48→21:49)
--- NOTE | 2017-02-18 14:25 | Venous Imaging Report ---
LE Venous Duplex Patient Name:Carlo Mcallister Order Number:[id number] Procedure Date:02/16/2017 Date:1965Age:51 yrs Gender:Male Location:[facility] ED Room #: 25 Student Recruiter:Ron Dietrich RDCS Referring MD:Abraham Flores MD Reading MD:Ish Lynch MD Primary Indications:Swelling Secondary Indications: Risk Factors Yes/No None Impressions: Left lower extremity: normal superficial and deep exam. Recommendations: After imaging the patient returned to their room. Critical findings reported to Dr. Terry by phone by Ron Dietrich RDCS. Findings Prior Study: No prior study available for comparison. Updated by Ish Lynch MD on 02/18/2017 2:17:48 PM electronically signed on 02/18/2017 2:18:07 PM with status of Final
[2017-02-18] MEDS ORDERED: Insulin LISPRO 300 UNITS/3 ML VIAL SQ SCH (21:00)
[2017-02-18] MEDS: Metoprolol XL (24 HR) Succ 25 MG TAB.ER.24H PO SCH (21:28)
[2017-02-19] MEDS: Insulin LISPRO 300 UNITS/3 ML VIAL SQ SCH ×2 (03:14→08:13)
[2017-02-19] MEDS: Cefepime HCl 2,000 MG in D5% in Water (Mini-Bag+) 100 ML IVPB SCH (05:49)
[2017-02-19] MEDS: *HR* Enoxaparin 40 MG/0.4 ML SYRINGE SQ SCH (05:55)
[2017-02-19] MEDS: Clotrimazole 1% CRM 15 GM TUBE TP SCH (08:14)
[2017-02-19] MEDS: Furosemide 40 MG/4 ML VIAL IVP SCH (08:14)
[2017-02-19] MEDS: Insulin DETEMIR 100 UNIT/ML X5UNITS SQ SCH (08:16)
[2017-02-19] MEDS ORDERED: predniSONE 20 MG TABLET PO SCH (09:00)
--- NOTE | 2017-02-19 10:12 | Discharge Summary ---
Date of Encounter: 02/19/17 Time of Encounter: 10:07 - Discharge Diagnosis (1) Cellulitis Priority: Primary Status: Acute Qualifiers: Site of cellulitis: extremity Site of cellulitis of extremity: lower extremity Laterality: left Qualified Code(s): L03.116 - Cellulitis of left lower limb (2) Poison luis dermatitis Priority: Primary Status: Acute (3) Essential hypertension Priority: Secondary Status: Chronic (4) Diabetes Priority: Secondary Status: Chronic Qualifiers: Diabetes mellitus type: type 2 Diabetes mellitus complication status: with hyperglycemia Diabetes mellitus longterm insulin use: without head batcher use Qualified Code(s): E11.65 - Type 2 diabetes mellitus with hyperglycemia - Discharge Medications Prescriptions: Cephalexin [Keflex] 500 mg PO Q8H #21 capsule Clindamycin HCl 450 mg PO Q6H 7 Days capsule Lactobacillus Acidophilus [Acidophilus] 1 each PO BID #30 capsule predniSONE [PredniSONE] 40 mg PO DAILY #14 tablet Home Medications: Atorvastatin Calcium [Lipitor] 20 mg PO HS 06/15/16 [History] Metformin HCl [Glucophage] 1,000 mg PO BID 06/15/16 [History] Metoprolol XL (24 HR) Succ [Toprol Xl] 25 mg PO HS 06/15/16 [History] Omeprazole [PriLOSEC] 40 mg PO DAILY 06/15/16 [History] Ranitidine HCl [Zantac] 300 mg PO HS PRN 06/15/16 [History] Sitagliptin Phosphate [Januvia] 100 mg PO DAILY 06/15/16 [History] Clotrimazole 1% CRM [Lotrimin 1%] 1 appl TP BID 02/16/17 [History] Levothyroxine [Synthroid] 125 mcg PO DAILY 02/16/17 [History] Potassium Chloride [Klor-Con 10] 10 meq PO DAILY 02/16/17 [History] Cephalexin [Keflex] 500 mg PO Q8H #21 capsule 02/19/17 [Rx] Clindamycin HCl 450 mg PO Q6H 7 Days capsule 02/19/17 [Rx] Furosemide [Lasix] 40 mg PO DAILY PRN #0 02/19/17 [Rx] Lactobacillus Acidophilus [Acidophilus] 1 each PO BID #30 capsule 02/19/17 [Rx] predniSONE [PredniSONE] 40 mg PO DAILY #14 tablet 02/19/17 [Rx] Allergies/Adverse Reactions: 3 Allergy/AdvReac Type Severity Reaction Status Date / Time No Known Allergies Allergy Verified 06/15/16 08:04 Date of admission: 02/16/17 13:46 Primary care physician: Landon Turpin MD Consults: 02/17/17 17:22 Consult to Physician [CONS] Routine Consulting Provider: Doug Cohn Reason for Consult: Left leg edema, tenderness, bullae formation, to r/o vasculitis Call Completed: Yes Discharging clinician: Katie Blanchard Anticipated date of discharge: 02/19/17 - Patient Status Disposition: Home, Self-Care Condition: Fair Functional capacity at discharge: independent ambulation Overall status at discharge: patient is progressing back to baseline - Discharge Instructions Follow Up With: Landon Turpin MD [Primary Care Provider] - Additional Instructions: F/up with PCP in 1-2 weeks F/up with Dr.Van Simpson in 1-2 weeks F/up with Dermatology in 1-2 weeks Please return to ER if you notice any excessive redness, fever, chills, odor, drainage or swelling. - Diet and Activity Activity: resume usual activities as tolerated Diet: diabetic diet, low fat, low cholesterol, low salt diet Hospital course: Mr. Mcallister is a 51 year old male with the above medical problems, who was admitted with acute on chronic left leg swelling, redness and pain. Patient gives history of bilateral leg swelling, left more than right, which has been ongoing for at least the last 4 months. It did not respond to Lasix or antibiotics that his primary care provider prescribed him. He currently has redness, pain and swelling in left leg with associated blisters and shallow ulcers with yellowish exudate. He also has an unrelated erythematous maculopapular rash streaking over his right lower extremity and then extending all over his trunk and bilateral upper extremities, which is likely thought to be poison luis contact dermatitis. Patient was started on broad-spectrum IV antibiotics-cefepime and vancomycin along with IV steroids for dermatitis and IV Lasix for leg swelling. Venous Doppler on bilateral lower extremities revealed no DVT. Patient cellulitis gradually improved on this regimen, blood cultures remained negative. Wound culture showed no significant growth. Rheumatology was consulted for workup for possible vasculitis. Chest x-ray showed no acute abnormality. Acute hepatitis viral panel was negative. Further labs are pending. Patient is currently medically stable for discharge and he is recommended leg elevation, to continue taking his Lasix and antibiotics and to avoid working long hours in standing position or walking. He is recommended to follow up with rheumatology and dermatology as an outpatient. - Time Spent with Patient Total time spent providing and/or coordinating discharge services: Greater than 30 minutes (45 min) - Constitutional Vitals: Temp Pulse Resp BP Pulse Ox 97.6 F 62 18 126/88 95 02/19/17 07:00 02/19/17 07:00 02/19/17 07:00 02/19/17 07:00 02/19/17 07:00 General appearance: Present: cooperative, A&O X 3, morbidly obese, answers questions appropriately - Extremities Exam Extremities exam: Present: pedal edema, warm, radial pulses palpable and symmetrical. Absent: calf tenderness, cyanotic Additional comments: improvement noted in left leg edema and erythema, shallow yellowish exudative ulcers appear more dry
[2017-02-19 11:06] VITALS: BP 125/78
[2017-02-21 08:21] LABS: ANA IgG by ELISA NONE DETECTED (None Detected)
[2017-02-24 09:38] LABS: Myeloperoxidase Ab 2 AU/mL (0-19); Serine Protease-3 Antibody 15 AU/mL (0-19)
== END 2017-02-19 12:18 | disposition home or self-care (01) ==
LOC: EMEROO 12:01 → 3NENU 13:46 → SUATTDRO 13:46 → INTOOBSV 13:46 → 3NENU 15:13
PROVIDERS: ADMIT Family Medicine; ATTEND Internal Medicine